=== PATIENT | female | born 1985 | race Caucasian/White ===

== ENCOUNTER 2017-08-10 15:23 | Emergency (ER) | payer OTHER ==
[~2017-08-10] VITALS: Ht 154.9 cm; Wt 46.7 kg
[2017-08-10] MEDS ORDERED: SERTRALINE HCL100 MG PO (15:35)
[2017-08-10] MEDS ORDERED: CARBAMAZEPINE100 MG PO (15:37)
== END 2017-08-10 15:45 | disposition home or self-care (01) ==
LOC: ED 15:23
DX: K08.89 Other specified disorders of teeth and supporting structures (principal)

== ENCOUNTER 2017-08-25 16:06 | Emergency (ER) | payer OTHER ==
[~2017-08-25] VITALS: Ht 154.9 cm; Wt 46.3 kg
--- OUTSIDE RECORDS SUMMARY | ~2017-08-25 | XMS | Clinical Summary ---
Demographics + + + | Address | [address] | | | [place] [address] | + + + | Home Phone | | + + + | Preferred Language | Unknown | + + + | Marital Status | Unknown | + + + | Pentecostal Affiliation | Unknown | + + + | Race | Unknown | + + + | Ethnic Group | Unknown | + + + Author + + + | Author | NON REVENUE LOCATIONS | + + + | Organization | NON REVENUE LOCATIONS | + + + | Address | Unknown | + + + | Phone | Unavailable | + + + Care Team Providers + +------+ + | Care Glass Finisher Name | Role | Phone | + +------+ + PP | Unavailable | + +------+ + Source Comments [facility] is fully live on both [facility] and [facility] InPatient.[facility] Allergies Not on File Current Medications Not on file Active Problems Not on file Social History + +-------+ +--------+------+ | Tobacco Use | Types | Packs/Day | Years | Date | | | | | Used | | + +-------+ +--------+------+ | Never Assessed | | | | | + +-------+ +--------+------+ + + + | Sex Assigned at | Date Recorded | | | | + + + | Not on file | | + + + Plan of Treatment + + + + + | Health Maintenance | Due Date | Last Done | Comments | + + + + + | INFLUENZA VACCINE | | | | | (FLU SHOT) | 7 | | | + + + + + Results Not on filefrom Last 3 Months"
[~2017-08-25 16:06] MED LIST: CARBAMAZEPINE100 MG PO; SERTRALINE HCL100 MG PO
== END 2017-08-25 18:34 | disposition home or self-care (01) ==
LOC: ED 16:06
DX: S29.012A Strain of muscle and tendon of back wall of thorax, initial encounter (principal); S16.1XXA Strain of muscle, fascia and tendon at neck level, initial encounter; S39.012A Strain of muscle, fascia and tendon of lower back, initial encounter; F17.200 Nicotine dependence, unspecified, uncomplicated; Z88.5 Allergy status to narcotic agent; V49.40XA Driver injured in collision with unspecified motor vehicles in traffic accident, initial encounter; Z79.899 Other long term (current) drug therapy
CPT/HCPCS: 71020; 72040; 99283

== ENCOUNTER 2021-04-20 23:06 | Emergency (ER) | payer OTHER ==
[~2021-04-20] VITALS: Ht 154.9 cm; Wt 59.0 kg
[~2021-04-20 23:06] MED LIST changes: +ATIVAN1 MG PO; +TEGRETOL XR100 MG PO; +ZOFRAN4 MG PO
--- OUTSIDE RECORDS SUMMARY | 2021-04-20 23:08 | XMS ---
PreManage Notification: ANDREA MCALLISTER Security Staff Developer Events No recent Security Events currently on file [facility] There are no care providers on record at this time. Car has no Care Guidelines for this patient. Shukri VISIT COUNT (12 MO.) 1 REYMUNDO Mcgrath TOTAL 1 NOTE: Visits indicate total known visits. ED/C VISIT TRACKING (12 MO.) 04/20/2021 23:06 REYMUNDO Enriquez OR TYPE: Emergency COMPLAINT: - DENTAL PAIN INPATIENT VISIT TRACKING (12 MO.) No inpatient visits to display in this time frame [id number]
[2021-04-20] MEDS ORDERED: HYDROCODON-ACE1 EA10 PO (23:16)
[2021-04-20] MEDS ORDERED: AZITHROMYCIN250 MG PO (23:16)
[2021-04-20] MEDS ORDERED: PERCOCET 5-3251 EACH PO (23:35)
[2021-04-20] MEDS ORDERED: CLINDAMYCIN HC300 MG PO (23:35)
== END 2021-04-20 23:52 | disposition home or self-care (01) ==
LOC: ED 23:06
DX: G89.18 Other acute postprocedural pain (principal); K08.89 Other specified disorders of teeth and supporting structures; G40.909 Epilepsy, unspecified, not intractable, without status epilepticus; F17.200 Nicotine dependence, unspecified, uncomplicated; Z88.5 Allergy status to narcotic agent; Z79.899 Other long term (current) drug therapy; Z79.891 Long term (current) use of opiate analgesic
CPT/HCPCS: 99282

== ENCOUNTER 2023-10-29 15:10 | Emergency (ER) | payer OTHER ==
[~2023-10-29] VITALS: Ht 154.9 cm; Wt 49.7 kg
[~2023-10-29 15:10] MED LIST changes: +AZITHROMYCIN250 MG PO; +CLINDAMYCIN HC300 MG PO; +HYDROCODON-ACE1 EA10 PO; +PERCOCET 5-3251 EACH PO
--- OUTSIDE RECORDS SUMMARY | 2023-10-29 15:15 | XMS ---
PreManage Notification: ANDREA MCALLISTER Security Lead Generation Representative Events No recent Security Events currently on file CRITERIA MET - PDMP CARE PROVIDERS -, Cm- Dentist: Quality Control Inspector Heading [facility] PHONE: [phone] Car has no Care Guidelines for this patient. E.DAdilson VISIT COUNT (12 MO.) 1 REYMUNDO Mcgrath TOTAL 1 NOTE: Visits indicate total known visits. ED/UCC VISIT TRACKING (12 MO.) 10/29/2023 15:11 REYMUNDO Enriquez OR TYPE: Emergency COMPLAINT: - HEADACHE INPATIENT VISIT TRACKING (12 MO.) No inpatient visits to display in this time frame [email or web address]
[2023-10-29] MEDS ORDERED: TRAZODONE HCL50 MG PO (15:35)
[2023-10-29] MEDS ORDERED: ATIVAN1 MG PO (17:06)
[2023-10-29] MEDS ORDERED: LORazepam 1 MG HOME.PACK PO ONE (19:45)
== END 2023-10-29 17:20 | disposition home or self-care (01) ==
LOC: ED 15:10
DX: F13.239 Sedative, hypnotic or anxiolytic dependence with withdrawal, unspecified (principal); F41.9 Anxiety disorder, unspecified; G43.909 Migraine, unspecified, not intractable, without status migrainosus; F17.200 Nicotine dependence, unspecified, uncomplicated; Z88.5 Allergy status to narcotic agent; Z79.899 Other long term (current) drug therapy
CPT/HCPCS: 99283